=== PATIENT | female | born 1945 | race Caucasian/White ===

== ENCOUNTER → 2017-08-31 | Outpatient (CLI) | payer OTHER ==
[~2017-08-31] MED LIST: CLINDAMYCIN; PAXIL
== END ==
LOC: CAT 08-28 11:14
DX: R51 Headache (principal); R41.3 Other amnesia; V89.0XXA Person injured in unspecified motor-vehicle accident, nontraffic, initial encounter; Y93.89 Activity, other specified; Y92.89 Other specified places as the place of occurrence of the external cause; Y99.8 Other external cause status

== ENCOUNTER → 2018-10-01 | Outpatient (CLI) | payer OTHER | LOC: ULTRA 07:38 | DX: K76.0 Fatty (change of) liver, not elsewhere classified (principal); K90.49 Malabsorption due to intolerance, not elsewhere classified ==

== ENCOUNTER → 2018-10-09 | Outpatient (CLI) | payer OTHER ==
[~2018-10-09] VITALS: Ht 162.6 cm; Wt 81.7 kg
[~2018-10-09] MED LIST changes: +ANTIVERT25 MG PO; +LIPITOR80 MG PO; +LOSARTAN POTASS50 MG PO; +METFORMIN HCL1000 MG PO; +PAROXETINE HCL30 MG PO
--- NOTE | 2018-10-11 08:19 | P ---
[facility] [place] [address] PROCEDURE REPORT Name: JOSE DIAZ Room #: REG TORY Edmundo#: [id number] Admission: 10/09/18 ������������������ Attend Phys: Mohsen Diaz Discharge: ������������������ Date of : 49 Report #: [id number] THIS REPORT FOR: //name// CC: Mohsen Vasques MD DATE OF SERVICE: 10/09/2018 PROCEDURE PERFORMED: Colonoscopy with biopsies. Random colon biopsies were also obtained today to rule out the possibility of microscopic colitis. HISTORY OF PRESENT ILLNESS: The patient is a 73-year-old female with a history of polyps, also with chronic diarrhea. No family history of colon cancer. Plan is for colonoscopy. DESCRIPTION OF PROCEDURE: The risks and benefits of the procedure were explained to the patient, those risks including but not limited to bleeding, perforation, and the risk of sedation. She understood these risks and gave informed consent. Sedation was given using propofol per anesthesia. Next, a digital rectal exam was initially performed, which was normal. Next, using a standard Olympus colonoscope, the scope was placed in the patient's anus and advanced under direct vision to the cecum. The overall prep was good. The cecum and ileocecal valve were normal in appearance. The ascending, transverse and descending colon were normal. A few diverticula were noted in the sigmoid colon. No evidence of inflammation, otherwise normal. In the rectum, there was a 4 mm sessile polyp. This was removed with cold forceps. On retroflexion, small nonbleeding internal hemorrhoids were noted. Scope was then withdrawn and the procedure terminated. The patient tolerated the procedure well. IMPRESSION: 1. Mild sigmoid diverticulosis. 2. Small rectal polyp. 3. Small internal hemorrhoids. 4. Otherwise, normal colonoscopy. RECOMMENDATIONS: 1. Await biopsy results. 2. If polyp is hyperplastic, repeat in 10 years; if adenomatous polyp, repeat in 5 years. [facility] [place] [address] PROCEDURE REPORT Name: JOSE DIAZ Room #: REG [facility] Josselin.#: [id number] Admission: 10/09/18 ������������������ Attend Phys: Mohsen Diaz Discharge: ������������������ Date of : 49 Report #: [id number] Thank you for allowing me to participate in her care. ��������������������������������������������� <ELECTRONICALLY SIGNED> ���������������������������������������� By: Mohsen Klein MD ��������������������������������������������� 10/11/18 0819 [id number] Mohsen Klein MD /nt
--- NOTE | 2018-10-11 12:07 | PATH ---
[facility] [address] [place] [address] PATHOLOGY RPT PROCEDURE Name: JOSE DIAZ Room #: REG ZACKFarhan Hernandez.#: [id number] ������������������ Admission: 10/09/18 ������������������ Date of : 49 Discharge: Report #: [id number] Path Case #: [id number] [facility] Accession Number: [id number] . 01 Material submitted: . PART A: RANDOM BIOPSIES COLON PART B: BX POLYP AT RECTUM . 01 Clinical history: . History of polyps, diarrhea rectal polyp, diverticulosis A: Rule out microscopic colitis . 02 Diagnosis: A. Large intestinal mucosa, random colon rule out microscopic colitis, endoscopic biopsy: - Mild active colitis with focal subtle architectural abnormalities, see comment. - Negative for microscopic colitis. - Negative for dysplasia or malignancy. . B. Polyp, rectal, endoscopic biopsy: - Tubular adenoma. - Negative for high-grade dysplasia. (IUV:pit 10/10/2018) QTP/10/10/2018 . 02 Comment: Sections of the colonic mucosa designated "random colon" show focal cryptitis, and a moderately cellular lamina propria composed predominantly of lymphocytes and plasma cells and occasional eosinophils. Surface ulceration is not identified. There are no crypt abscesses, granulomas or viral inclusions. The process affects all the fragments with a similar intensity. Given the description, the differential diagnosis includes acute colitis due to self-limited etiology, an infectious-type of colitis, drug induced or medication induced colitis, acute as well as chronic diverticulitis in addition to early inflammatory bowel disease due to the focal and subtle architectural abnormalities identified. Please correlate with clinical as well as endoscopic findings. (IUV:pit 10/10/2018) . 02 Electronically signed: . Henny Meza MD, Pathologist NPI- [id number] . 01 Gross description: . A. The specimen is received in formalin, labeled "[place] [address] PATHOLOGY RPT PROCEDURE Name: JOSE DIAZ [facility] #: [facility] [id number] ������������������ Admission: 10/09/18 ������������������ Date of : 49 Discharge: Report #: [id number] Path Case #: [id number] BX colon" and consists of 5 fragments of pink-d[place] tissue measuring 1.3 x 0.6 x 0.2 cm in aggregate which are entirely submitted in A1. . B. The specimen is received in formalin, labeled "Ines Diazca, rectal polyp" and consists of 2 fragments of d[place] tissue measuring 0.2 x 0.2 cm and 0.4 x 0.3 x 0.2 cm. They are entirely submitted in B1. (SDY; 10/09/2018) SYU/SYU . 02 Pathologist provided ICD-10: K52.9, D12.8 . 02 CPT . 325416, 049141 Specimen Comment: A courtesy copy of this report has been sent to Specimen Comment: [phone], . Specimen Comment: Report sent to / DR BOYD Specimen Comment: A duplicate report has been generated due to demographic updates. Performed at: [address], [place] [id number] MD Denny Carver MD Phone: [phone] Performed at: [address] [id number] MD Henny Meza MD Phone: [phone]
== END | disposition home or self-care (01) ==
LOC: GI 08:56
DX: D12.8 Benign neoplasm of rectum (principal); K52.89 Other specified noninfective gastroenteritis and colitis; Z86.010 Personal history of colon polyps; K57.30 Diverticulosis of large intestine without perforation or abscess without bleeding; K64.8 Other hemorrhoids; Z68.30 Body mass index [BMI] 30.0-30.9, adult; F32.9 Major depressive disorder, single episode, unspecified; H81.09 Meniere's disease, unspecified ear; Z90.710 Acquired absence of both cervix and uterus; Z98.890 Other specified postprocedural states; E11.9 Type 2 diabetes mellitus without complications; I10 Essential (primary) hypertension; K21.9 Gastro-esophageal reflux disease without esophagitis; Z87.891 Personal history of nicotine dependence
CPT/HCPCS: 62110; 62900